=== PATIENT | female | born 2000 | race Caucasian/White ===

== ENCOUNTER 2024-06-25 17:58 | Emergency (ER) | payer BC, OTHER ==
[~2024-06-25] VITALS: Ht 172.7 cm; Wt 72.6 kg
[2024-06-25 19:01] LABS: *BILIRUBIN,URIN NEGATIVE (NEGATIVE); *BLOOD, URINE NEGATIVE (NEGATIVE); *CLARITY,URINE CLEAR (CLEAR); *COLOR,URINE YELLOW (YELLOW); *KETONES,URINE 1+ (NEGATIVE); *PROTEIN,URINE NEGATIVE (NEGATIVE); *UROBILINOGEN,URINE 0.2 E.U./dl (NORMAL); LEUKOCYTE ESTERASE ,URINE TRACE (NEGATIVE); NITRITE, URINE NEGATIVE (NEGATIVE); UGLUCOSE NEGATIVE (NEGATIVE)
[2024-06-25 19:03] LABS: *URINE HCG, QUAL NEGATIVE (NEGATIVE)
[2024-06-25 19:33] LABS: BACTERIA,URINE FEW /HPF (NONE SEEN); RBC,URINE 0-3 /HPF (0-3); WBC,URINE 0-3 /HPF (0-3)
[2024-06-25 19:34] LABS: SQUAMOUS EPITHELIAL CELL,UR FEW /HPF (NONE SEEN)
[2024-06-25] MEDS ORDERED: FOSFOMYCIN TROMETHAMINE 3 GM PACKET ONE (20:48)
[2024-06-25] MEDS: FOSFOMYCIN TROMETHAMINE 3 GM PACKET PO ONE (20:51)
[2024-06-25] MEDS: ONDANSETRON ODT 4 MG TAB.RAPDIS SL ONE (20:51)
[2024-06-25] MEDS ORDERED: ONDANSETRON ODT 4 MG TAB.RAPDIS ONE (20:51)
[2024-06-25] MEDS ORDERED: ONDA4TAB11 PO (20:57)
[2024-06-25 21:27] VITALS: BP 115/88; O2SAT 99
== END 2024-06-25 21:27 | disposition home or self-care (01) ==
LOC: ER 18:00
DX: N39.0 Urinary tract infection, site not specified (principal); R10.2 Pelvic and perineal pain; Z79.899 Other long term (current) drug therapy; Z88.1 Allergy status to other antibiotic agents
CPT/HCPCS: 84703; A4606; A4663; Q0162